=== PATIENT | female | born 1970 | race Caucasian/White ===

== ENCOUNTER 2017-01-09 08:23 | Day surgery (SDC) | payer BC ==
[~2017-01-09] VITALS: Ht 175.3 cm; Wt 77.1 kg
--- NOTE | ~2017-01-09 | EGD ---
EGD REPORT [facility] [address] [place] [address] NAME: MARISELA CRAIG [place] : 74 STATUS : REG [facility] [place] PAT#: [id number] AGE: 46 ADM/REG DATE : 01/09/17 MR#: [id number] REPORT SERV DATE: 01/11/17 DICTATED BY: ESTRELLITA SCHNEIDER DATE: 01/11/17 REPORT STATUS : Draft TRANSCRIBED BY: [facility] DATE: 01/11/17 [facility] Patient Name: Marisela Craig Lyn Date of : 1970 Attending MD: ESTRELLITA SCHNEIDER MD Procedure Date No Time: 01/09/2017 Procedure: Colonoscopy Indications: Surveillance: Personal history of adenomatous polyps on last colonoscopy 5 years ago Referring MD: GIA CHAMORRO Medicines: Propofol per Anesthesia Complications: No immediate complications. Procedure: Pre-Anesthesia Assessment: - ASA Grade Assessment: II - A patient with mild systemic disease. - ASA Grade Assessment: III - A patient with severe systemic disease. After I obtained informed consent, the scope was passed under direct vision. Throughout the procedure, the patient's blood pressure, pulse, and oxygen saturations were monitored continuously. The CF [id number] was introduced through the anus and advanced to the terminal ileum. The colonoscopy was performed without difficulty. The patient tolerated the procedure well. The quality of the bowel preparation was good. The terminal ileum and rectum were photographed. Findings: The perianal and digital rectal examinations were normal. The terminal ileum appeared normal. Biopsies were taken with a cold forceps for histology. to r/o microscopic ileitis There was evidence of a prior end-to-side ileo-colonic anastomosis in the distal transverse colon. This was patent. This was characterized by healthy appearing mucosa. This was traversed. The colon (entire examined portion) appeared normal. Biopsies were taken with a cold forceps from the entire colon for evaluation of microscopic colitis. A sessile polyp was found in the distal sigmoid colon. The polyp was 2 mm in size. The polyp was removed with a cold biopsy forceps. Resection and retrieval were complete. Non-bleeding internal hemorrhoids were found during retroflexion and were mild, small and Grade I (internal hemorrhoids that do not prolapse). Impression: - The examined portion of the ileum was normal. Biopsied. - Patent end-to-side ileo-colonic anastomosis. EGD REPORT [facility] [id number] [place]. [address] NAME: MARISELA CRAIG : 74 STATUS : REG [facility] [place] PAT#: [id number] AGE: 46 ADM/REG DATE : 01/09/17 MR#: [id number] REPORT SERV DATE: 01/11/17 DICTATED BY: ESTRELLITA SCHNEIDER DATE: 01/11/17 REPORT STATUS : Draft TRANSCRIBED BY: [employer] DATE: 01/11/17 - The entire examined colon is normal. Biopsied. - One 2 mm polyp in the distal sigmoid colon. Resected and retrieved. - Non-bleeding internal hemorrhoids. Recommendation: - Patient has a contact number available for emergencies. The signs and symptoms of potential delayed complications were discussed with the patient. Return to normal activities tomorrow. Written discharge instructions were provided to the patient. - Return to previous diet. - Continue present medications. - Await pathology results. - Repeat colonoscopy in 5 years for surveillance. - Return to my office as previously scheduled. - Discharge patient to home. Procedure Code(s): --- Professional --- 29099, Colonoscopy, flexible, proximal to splenic flexure; with biopsy, single or multiple Diagnosis Code(s): --- Professional --- K64.0, First degree hemorrhoids Z98.0, Intestinal bypass and anastomosis status D12.5, Benign neoplasm of sigmoid colon Z86.010, Personal history of colonic polyps CPT copyright 2013 [employer] [employer]. All rights reserved. The codes documented in this report are preliminary and upon adjuster arbitrator review may be revised to meet current compliance requirements. Estrellita Schneider MD ESTRELLITA SCHNEIDER MD 01/09/2017 12:16 PM This report has been signed electronically. Number of Addenda: 0 Note Initiated On: 01/09/2017 11:07 AM Scope Withdrawal Time 0 hours 0 minutes 0 seconds [id number] [id number]
[~2017-01-09 08:23] MED LIST: ARAVA20 PO; ATARAX50B PO; BIOTIN10 MG PO; COCONUT OIL PO; CYMBALTA30 PO; FISH OIL1200 MG PO; NEUR300 PO; P5 PO; PRILOSEC40 MG PO; RANITIDINE300 MG PO; TYLENOL COL5 PO; ULTRAM50 PO; VITAMIN B-121000 MC1 SL; ZESTRIL20 MG PO; ZYRTEC ALLGY10 MG PO
== END 2017-01-09 23:59 | disposition home health service (06) ==
LOC: DMU 08:23
PROVIDERS: Internal Medicine Gastroenterology
PROC: 0DBN8ZX Excision of Sigmoid Colon, Via Natural or Artificial Opening Endoscopic, Diagnostic (ICD-10-PCS; 2017-01-09)
PROC: 0DBE8ZX Excision of Large Intestine, Via Natural or Artificial Opening Endoscopic, Diagnostic (ICD-10-PCS; 2017-01-09)
PROC: 0DBB8ZX Excision of Ileum, Via Natural or Artificial Opening Endoscopic, Diagnostic (ICD-10-PCS; principal; 2017-01-09 09:30)
DX: Z12.11 Encounter for screening for malignant neoplasm of colon (principal); K63.5 Polyp of colon; K64.0 First degree hemorrhoids; I10 Essential (primary) hypertension; M06.9 Rheumatoid arthritis, unspecified; K21.9 Gastro-esophageal reflux disease without esophagitis; F41.9 Anxiety disorder, unspecified; F32.9 Major depressive disorder, single episode, unspecified; I49.3 Ventricular premature depolarization; Z98.0 Intestinal bypass and anastomosis status; Z86.010 Personal history of colon polyps; Z79.899 Other long term (current) drug therapy; F17.210 Nicotine dependence, cigarettes, uncomplicated; Z90.49 Acquired absence of other specified parts of digestive tract; Z98.51 Tubal ligation status; Z98.890 Other specified postprocedural states
CPT/HCPCS: 84703; 88305